=== PATIENT | female | born 1945 | race Caucasian/White ===

== ENCOUNTER → 2017-04-15 | Outpatient (CLI) | payer BC, OTHER ==
[~2017-04-15] MED LIST: ASPIRIN EC81 M1 PO; CIPRO500 MG PO; FLONASE 0.05%50 MCG NASAL; MACROBID 100 M100 M2 PO; MOM; PRILOSEC40 MG PO
== END ==
LOC: RAD 08:58
DX: R05 Cough (principal)

== ENCOUNTER 2018-04-20 22:25 | Emergency (ER) | payer BC, OTHER ==
[~2018-04-20] VITALS: Ht 162.6 cm; Wt 75.3 kg
[2018-04-20] MEDS ORDERED: ZANTAC 150MG T150 MG PO (22:35)
[2018-04-20] MEDS ORDERED: ACCUNEB SO1.25 MG/1 INH (22:36)
[2018-04-20] MEDS ORDERED: FLONASE ALLERG9.9 ML NASAL (22:36)
[2018-04-21 01:07] VITALS: BP 121/49
== END 2018-04-21 01:08 | disposition home or self-care (01) ==
LOC: ER 22:25
DX: S09.90XA Unspecified injury of head, initial encounter (principal); S16.1XXA Strain of muscle, fascia and tendon at neck level, initial encounter; E11.9 Type 2 diabetes mellitus without complications; E78.00 Pure hypercholesterolemia, unspecified; Z88.8 Allergy status to other drugs, medicaments and biological substances; Z88.2 Allergy status to sulfonamides; Z90.710 Acquired absence of both cervix and uterus; Z85.3 Personal history of malignant neoplasm of breast; Z90.11 Acquired absence of right breast and nipple; W10.8XXA Fall (on) (from) other stairs and steps, initial encounter; Y92.89 Other specified places as the place of occurrence of the external cause; Y93.89 Activity, other specified; Y99.8 Other external cause status

== ENCOUNTER 2018-10-03 10:17 | Emergency (ER) | payer BC, OTHER ==
[~2018-10-03] VITALS: Ht 162.6 cm; Wt 75.8 kg
[~2018-10-03 10:17] MED LIST changes: +ACCUNEB SO1.25 MG/1 INH; +FLONASE ALLERG9.9 ML NASAL; +ZANTAC 150MG T150 MG PO
[2018-10-03] MEDS ORDERED: PRILOSEC 20 MG20 MG PO (10:35)
[2018-10-03] MEDS ORDERED: TESSALON PERLE100 MG PO (11:58)
[2018-10-03] MEDS ORDERED: PROAIR HFA8.5 GM INH (12:06)
[2018-10-03 12:17] VITALS: BP 119/54
== END 2018-10-03 12:19 | disposition home or self-care (01) ==
LOC: ER 10:17
DX: J06.9 Acute upper respiratory infection, unspecified (principal); R11.0 Nausea; E78.00 Pure hypercholesterolemia, unspecified; E11.9 Type 2 diabetes mellitus without complications; Z88.2 Allergy status to sulfonamides; Z88.8 Allergy status to other drugs, medicaments and biological substances; Z90.710 Acquired absence of both cervix and uterus; Z85.3 Personal history of malignant neoplasm of breast; Z90.11 Acquired absence of right breast and nipple

== ENCOUNTER 2019-08-27 15:55 | Emergency (ER) | payer BC, OTHER ==
[~2019-08-27] VITALS: Ht 162.6 cm; Wt 76.2 kg
[~2019-08-27 15:55] MED LIST changes: +PRILOSEC 20 MG20 MG PO; +PROAIR HFA8.5 GM INH; +TESSALON PERLE100 MG PO
[2019-08-27 16:31] LABS: BASOPHILS 1.2 % (0.0-2.0); EOSINOPHILS 2.6 % (0.0-3.0); HEMATOCRIT 40.3 % (37.0-47.0); HEMOGLOBIN 13.5 gm/dL (12.0-15.0); LYMPHOCYTES 43.3 % (24.0-44.0); MCH 31.1 pg (26.0-34.0); MCHC 33.6 g/dL (28.0-37.0); MCV 92.5 fL (80.0-100.0); MONOCYTES 6.4 % (1.0-8.0); PLATELET COUNT 272 thou/uL (150-400); POLYS 46.5 % (36.0-66.0); RBC 4.35 mil/uL (4.20-5.00); RDW 12.6 % (10.5-14.5); WBC 6.5 thou/uL (4.0-11.0)
[2019-08-27 16:38] LABS: ANION GAP 7 mmol/L (7-16); BUN 13 mg/dL (7-18); CALCIUM 9.5 mg/dL (8.5-10.1); CHLORIDE 102 mmol/L (98-107); CO2 29 mmol/L (21-32); GLUCOSE 196 mg/dL (74-106); POTASSIUM 3.7 mmol/L (3.5-5.1); SODIUM 138 mmol/L (136-145)
[2019-08-27 16:48] LABS: MAGNESIUM 2.6 mg/dL (1.8-2.4); TROPONIN-I <0.06 ng/mL (<0.06)
[2019-08-27 17:57] LABS: URINE BILIRUBIN NEGATIVE (Negative); URINE BLOOD 1+ (Negative); URINE CLARITY CLEAR; URINE COLOR YELLOW; URINE GLUCOSE-RANDOM* NEGATIVE (Negative); URINE KETONES NEGATIVE (Negative); URINE LEUKOCYTES-REFLEX NEGATIVE (Negative); URINE NITRITE-REFLEX NEGATIVE (Negative); URINE PROTEIN (DIPSTICK) NEGATIVE (Negative); URINE UROBILINOGEN 0.2 E.U./dl (0.2-1.0)
[2019-08-27 18:15] LABS: BACTERIA-REFLEX None Seen /HPF (None Seen); CASTS None Seen /LPF (None Seen); CRYSTALS None Seen /LPF (None Seen); SQUAMOUS None Seen /LPF (0-3); URINE RBC 3-10 Few /HPF (0-2); URINE WBC-REFLEX None Seen /HPF (0-5)
[2019-08-27 18:29] VITALS: BP 147/74
--- NOTE | 2019-08-28 10:48 | EKG ---
[address] [employer] [place] [address] ELECTROCARDIOGRAM REPORT Name: ELENO SCHMIDT Room #: [facility]MARY[facility] [id number] Admission: 08/27/19 Attend Phys: Discharge: 08/27/19 Date of : 49 Report #: [id number] THIS REPORT FOR: //name// [facility] ED Test Date: 2019-08-27 Test Time: 16:30:55 Pat Name: ELENO SCHMIDT Department: Room: Gender: F Vice President Client Services: [facility] : 1945 Requested By: Herrera Gilliam Order Number: [id number] MD: Dhaval Bruno Measurements Intervals Cameron Rate: 89 P: 49 TN: 136 QRS: -9 QRSD: 86 T: 20 QT: 376 QTc: 458 Interpretive Statements Sinus rhythm Low voltage, precordial leads Compared to ECG 09/16/2015 10:28:40 No significant changes Electronically Signed On 08-28-2019 10:48:19 [employer] by Dhaval Bruno [email or web address] <ELECTRONICALLY SIGNED> By: Dhaval Bruno MD 08/28/19 1048 1630 29 Dhaval Bruno MD /WILLIAM
== END 2019-08-27 18:29 | disposition home or self-care (01) ==
LOC: ER 15:55
PROVIDERS: Emergency Medicine
DX: E11.65 Type 2 diabetes mellitus with hyperglycemia (principal); R31.9 Hematuria, unspecified; R11.2 Nausea with vomiting, unspecified; E78.00 Pure hypercholesterolemia, unspecified; Z90.710 Acquired absence of both cervix and uterus; Z85.3 Personal history of malignant neoplasm of breast; Z90.11 Acquired absence of right breast and nipple; Z88.2 Allergy status to sulfonamides; Z88.8 Allergy status to other drugs, medicaments and biological substances